=== PATIENT | female | born 1955 | race Caucasian/White ===

== ENCOUNTER 2017-02-02 08:14 | Day surgery (SDC) | payer OTHER ==
[~2017-02-02] VITALS: Ht 157.5 cm; Wt 69.7 kg
[~2017-02-02 08:14] MED LIST: PROZ20CA11 PO; ST JTAB PO
[2017-02-02 09:00] VITALS: BP 114/70; PULSE 59; RESP 16; TEMP 98.2; O2SAT 96
[2017-02-02] MEDS ORDERED: NS 1000P @30 MLS/HR (KVO) IV SCH ×2 (09:00→11:30)
[2017-02-02] MEDS ORDERED: PROZ20CA11 PO (09:12)
[2017-02-02] MEDS ORDERED: ASPI81CH CHEW (09:12)
[2017-02-02 09:21] LABS: AUTOMATED NEUTROPHIL # 2.8 TH/MM3 (1.8-7.7); BASOPHIL % 0.7 % (0.0-2.0); EOSINOPHIL # 0.2 TH/MM3 (0-0.4); EOSINOPHIL % 3.4 % (0.0-4.0); HEMATOCRIT 43.5 % (35.0-46.0); HEMO FLAGS DIFF FINAL; LYMPH % 34.7 % (9.0-44.0); LYMPHOCYTE # 1.8 TH/MM3 (1.0-4.8); MEAN CELL VOLUME 91.9 FL (80.0-100.0); MEAN CORPUSCULAR HEMOGLOBIN 31.3 PG (27.0-34.0); MONO % 7.7 % (0.0-8.0); NEUT % 53.5 % (16.0-70.0); PLATELET COUNT 221 TH/MM3 (150-450); RED BLOOD COUNT 4.73 MIL/MM3 (4.00-5.30); RED CELL DISTRIBUTION WIDTH 12.9 % (11.6-17.2); WHITE BLOOD COUNT 5.2 TH/MM3 (4.0-11.0)
[2017-02-02 09:30] LABS: INTERNATIONAL NORMALIZED RATIO 0.9 RATIO; PROTHROMBIN TIME - PATIENT 10.3 SEC (9.8-11.6)
[2017-02-02 09:40] LABS: BICARBONATE 28.4 MEQ/L (21.0-32.0); POTASSIUM 3.9 MEQ/L (3.5-5.1)
[2017-02-02] MEDS ORDERED: MIDAZOLAM HCL 2 MG/2 ML VIAL ONE (09:50)
[2017-02-02] MEDS ORDERED: HEPARIN-NS/PF INJ 500 ML ONE (09:50)
--- NOTE | 2017-02-02 10:41 | CATHPROC ---
[employer] HIS Report Study Information Study Number Admission Scheduled Start Study Start [id number] Feb 02 2017 8:14AM 02/02/2017 Feb 02 2017 9:40AM [place] Service Cardiac Catheterization Admit Source Facility Department Other [facility] - Technology Resource Teacher Physician and Clinical Staff Initial Milana Hadley Sound System Installer Trudi Kam,MAHNAZ Recorder Leeroy Wells RCIS(BS) Lyn Cano RCIS TECH2 Procedures Performed Procedure Location (Site) Vessel Name Coronary Angiograms LCA Left Coronary L Heart Cath Equipment Time Maintenance Machinist Description Size Mfg Part Number Used/Scraped PERCLOSE, PRO GLIDE CLOSER 10:19 [employer] FR 6 [id number] *[id number] Used DEVICE TRANSDUCER, TRUWAVE [id number] 10:01 SINGH KAM * Used W/STOCKCOCK *[id number] [id number] *[id number] [id number] *[id number] [id number] *[id number] 10:01 [employer] PACK, CCL CUSTOM * Used *[id number] 10:01 EntraTympanic PACER PEN, SKIN DUAL W/ RULER * Used *[id number] 10:01 [email or web address] SHEATH, FR6.5 PRELUDE 11CM FR 6.5 038ACT Used *[id number] 10:01 [email or web address] WIRE, 3MMJ .035 180CM 180CM Used *[id number] 10:01 NAMIC MANIFOLD, 4 PORT * Used *[id number] 10:01 [employer] OMNIPAQUE, 350 MG, 150ML 150ML [id number] Used [id number] 10:01 [facility],WARM AIR CCL * Used *[id number] Equipment Model, Serial, Lot Number and Expiration Data Description Model Number Serial Number Lot Number Expiration Date PERCLOSE, PRO GLIDE CLOSER [id number] 10-18-2018 DEVICE History: Current Medications Medication Dosage/Unit Route Frequency Last Date/Time Taken ASA History: Allergies Allergy Reaction Levaquin History: Risk Factors Family History of Hypertension Dyslipidemia Previous DC Previous Heart Failure Premature CAD Yes Yes Yes Yes No Prior Valve Prior PCI Prior CABG Surgery No No No Cerebrovascular Peripheral Artery Chronic Lung On Dialysis Diabetes Disease Disease Disease No No No Yes No History: Symptoms/Diagnosis Selection Items Chest pain History: Stress Tests Stress or Imaging Studies Performed Yes Standard Exercise Stress Test No Stress Echo No Stress Test SPECT Stress Test SPECT Result Stress Test SPECT Ischemia Risk/Extent Yes Positive Intermediate Stress Test CMR No Cardiac CTA Coronary Calcium Score No No History: Other Current Smoker No Labs Hgb (g/dl) Hct (%) WBC (l/cumm) Platelets (thousands) 11.60-17.00 35.00-51.00 4.00-11.00 150.00-450.00 14.8 43.5 5.2 221 Glucose (mg/dl) BUN (mg/dl) Creatinine (mg/dl) BUN:Creatinine (1:x) 74.00-106.00 7.00-18.00 0.50-1.30 10.00-20.00 90 16 0.6 26.7 Na (meq/l) K (meq/l) 136.00-145.00 3.50-5.10 139 3.9 INR (PTT:PT) 0.90-1.10 0.9 CPK-MB (ng/ML) 0.50-3.60 Not Drawn Medication Medication Total Dose (Bolus/Oral) Medication Total Dosage/Unit 1% XYLOCAINE 20 mL VERSED 1 mg Medications (Bolus/Oral) Medication Time Given Dosage/Unit Administered By Reason VERSED 02/02/2017 10:04:00 AM 1 mg Trudi Kam 1 mg VERSED given in lab by Trudi Kam, RN in Left Antecubital via Peripheral IV. Ordered by Milana Lyons. 1% XYLOCAINE 02/02/2017 10:05:53 AM 20 mL Milana Vickers 20 mL 1% XYLOCAINE given in lab by Milana Vickers in Right Groin via Subcutaneous. Ordered by Milana Vickers. Medication (Drip) Medication Time Given Dosage/Unit Concentration/Unit Diluent (ml) Solution IV Solutions 02/02/2017 9:44:34 AM 0 mL (IV) 500 NaCl .9 Patient arrived on IV Solutions in Left Antecubital via Peripheral IV. Pump/Drip Flow = 20 ml/hr usin g NaCl .9. Ordered by Milana Vickers. Initial Case Assessment Cardiovascular HR Rhythm NIBP Chest Pain 55 SINUS TAMIKO 100/76 0 Edema Present Skin color Skin None Normal Warm Dry Circulatory - Right Pulses Dorsalis Pedis Femoral 2 2 Scale (0,1,2,3,4,d) Circulatory - Left Pulses Dorsalis Pedis Femoral 2 2 Scale (0,1,2,3,4,d) Circulatory - Lower Extremities Color Lower Right Color Lower Left Normal Normal Neurological State Oriented to time-place- Alert Moves all extremities person Respiration - General Respiration Rate SpO2 (%) (B/min) 10 98 Final Case Assessment Cardiovascular HR Rhythm NIBP Chest Pain 55 SINUS TAMIKO 120/76 0 Edema Present Skin color Skin None Normal Warm Dry Circulatory - Right Pulses Dorsalis Pedis Femoral 2 2 Scale (0,1,2,3,4,d) Circulatory - Left Pulses Dorsalis Pedis Femoral 2 2 Scale (0,1,2,3,4,d) Circulatory - Lower Extremities Color Lower Right Color Lower Left Normal Normal Neurological State Oriented to time-place- Alert Moves all extremities person Respiration - General Respiration Rate SpO2 (%) (B/min) 10 98 Chronological Log Time Study Chronological Log 9:44:15 Patient arrived via Bed. 9:44:17 Patient Name, D.O.B, / Armband Verified By R.N. 9:44:17 Consent signed by the physician and the patient and verified by the Technology Resource Teacher staff. 9:44:19 Pre-op and post- op instructions given; patient acknowledges understanding of instructions. 9:44:22 Verbal Stimulation=2 Physical Stimulation=2 Airway=2 Respiration=2 TOTAL=8. (0=absent, 1=li mited, 2=present) 9:44:26 Patient has been NPO for Less than 6Hrs. 9:44:27 Skin Breakdown- 9:44:28 Patient Warmer Placed on the Table. 9:44:32 A # 20 IV was noted in the Antecubital (left). Grade = 0 Patient arrived on IV Solutions in Left Antecubital via Peripheral IV. Pump/Drip Flow = 20 ml/h r using NaCl .9. Ordered 9:44:34 by Milana Vickers. 9:44:35 History and physical on the chart or being dictated. Vitals capture started with the following parameters, Patient=Adult, Interval=5 min, Initial Pr djedui=705 mmHg, 9:48:54 Deflation Rate=5 mmHg, Cuff placed on Right Arm Assessment: Initial Case, HR=55 BPM, Rhythm=SINUS TAMIKO, XAZS=419/76 mmhg, Chest Pain=0, Edema= None, Color=Normal, Skin = Warm, Dry Right Pulses: Michael Ped=2, Femoral=2 Left Pulses: Michael Ped=2, Femoral=2 9:48:58 Lower Right Extremities: Color=Normal Lower Left Extremities: Color=Normal Neurological: State=Alert, Ox3, CERVANTES Respiration: Resp=10 B/min, SpO2=98 % 9:48:59 Right groin prepped with 2% chlorhexidine, and with a 3 min. waiting time. 9:49:38 HR=59 bpm, BWDB=170/72 mmhg, SpO2=99.0 %, Resp=0 B/min, Pain=0, Juany=10, Alonso=2 9:54:27 HR=57 bpm, SGAF=146/70 mmhg, SpO2=98.0 %, Resp=4 B/min, Pain=0, Juany=10, Alonso=2 9:59:24 HR=58 bpm, TJEJ=182/76 mmhg, SpO2=97.0 %, Resp=19 B/min, Pain=0, Juany=10, Alonso=2 10:02:17 Right groin prepped with 2% chlorhexidine, and with a 3 min. waiting time. 10:02:18 MD arrived. 10:04:00 1 mg VERSED given in lab by Trudi Kam RN in Left Antecubital via Peripheral IV. Or dered by Milana Vickers. 10:04:21 HR=56 bpm, TVDG=206/71 mmhg, SpO2=98.0 %, Resp=9 B/min, Pain=0, Juany=10, Alonso=2 10:05:05 Reference ECG taken Time Out. Correct patient, correct procedure,correct physician, power injector loaded with cont rast with surgical team 10:05:23 present. Time Out Concurred by , individual staff in procedure 10:05:51 Case Start 10:05:53 20 mL 1% XYLOCAINE given in lab by Milana Vickers in Right Groin via Subcutaneous. Ordered b y Milana Vickers. 10:06:50 Pressure channel 1 zeroed. 10:07:14 Access site was Right Femoral Artery. 10:07:18 A SHEATH, FR6.5 PRELUDE 11CM FR 6.5 was advanced into the Fem Art (right) using the Percuta neous technique. A JR 4.0 INFINITI CATHETER FR 6 was advanced over a wire. OMNIPAQUE, 350 MG, 150ML 150ML was us ed for 10:07:30 injections. 10:09:57 HR=58 bpm, CIZK=640/71 mmhg, SpO2=93.0 %, Resp=14 B/min, Pain=0, Juany=10, Alonso=2 Recorded Pressure: Ao, HR=60, Condition=Condition 1 10:10:18 (Aorta) Ao 115/67/86 10:10:43 The LCA was injected and visualized at various angles. OMNIPAQUE, 350 MG, 150ML 150ML used . 10:11:26 Catheter was removed A JL 4.0 INFINITI CATHETER FR 6 was advanced over a wire. OMNIPAQUE, 350 MG, 150ML 150ML was us ed for 10:11:27 injections. 10:12:46 The LCA was injected and visualized at various angles. OMNIPAQUE, 350 MG, 150ML 150ML used . 10:14:03 Catheter was removed A PIGTAIL STR INFINITI CATHETER FR 6 was advanced over a wire. OMNIPAQUE, 350 MG, 150ML 150ML w as used for 10:14:15 injections. 10:14:27 HR=55 bpm, ZLTC=127/66 mmhg, SpO2=96.0 %, Resp=15 B/min, Pain=0, Juany=10, Alonso=2 Recorded Pressure: LV, HR=59, Condition=Condition 1 10:15:34 (Left Ventricle) LV 111/-1/5 Recorded Pressure: LV, Ao, HR=57, Condition=Condition 1 10:15:49 (Left Ventricle) LV 122/-6/6, (Aorta) Ao 118/68/89 10:16:32 Catheter was removed 10:16:47 An injection in the Fem Art (right) was made through the SHEATH, FR6.5 PRELUDE 11CM FR 6.5. Assessment: Final Case, HR=55 BPM, Rhythm=SINUS TAMIKO, JIIF=419/76 mmhg, Chest Pain=0, Edema=N one, Color=Normal, Skin = Warm, Dry Right Pulses: Michael Ped=2, Femoral=2 Left Pulses: Michael Ped=2, Femoral=2 10:17:37 Lower Right Extremities: Color=Normal Lower Left Extremities: Color=Normal Neurological: State=Alert, Ox3, CERVANTES Respiration: Resp=10 B/min, SpO2=98 % 10:19:00 PERCLOSE, PRO GLIDE CLOSER DEVICE FR 6 placement in the Fem Art (right) 10:19:28 HR=56 bpm, NKJG=915/69 mmhg, SpO2=97.0 %, Resp=14 B/min, Pain=0, Juany=10, Alonso=2 10:20:25 Case End 10:21:06 Sterile dressing applied to site 10:21:07 No case complications noted. 10:21:08 Cine recording checked. 10:22:45 Contrast Scanned 10:22:49 A Left Heart Cath was performed. 10:22:50 Patient moved to stretcher 10:24:25 HR=58 bpm, QVNK=113/72 mmhg, SpO2=97.0 %, Resp=11 B/min, Pain=0, Juany=10, Alonso=2 10:29:30 HR=57 bpm, VQZZ=554/66 mmhg, SpO2=97.0 %, Resp=12 B/min, Pain=0, Juany=10, Alonso=2 10:34:33 HR=57 bpm, VBUQ=172/60 mmhg, SpO2=97.0 %, Resp=19 B/min, Pain=0, Juany=10, Alonso=2 End Study - Contrast Media Used In Study Contrast Total Opened (mL) Total Used (mL) Total Wasted (mL) Omnipaque 50 50 0 End Study - Maximum Contrast Load Max Contrast Load (mL) 580.7 End Study - Radiation Exposure Fluoro Time (minutes) 2.5 End Study - Patient Disposition Complications Transferred To Telemetry Bed
[2017-02-02] MEDS ORDERED: SODIUM CHLOR 0.9% 1000 ML INJ 400 ML IV ONE (11:00)
--- NOTE | 2017-02-02 13:47 | EKG ---
Date Performed: 02/02/2017 Time Performed: 09:22:48 PTAGE: 61 years EKG: Sinus bradycardia. rSr'(V1) - probable normal variant Septal T wave changes are nonspecific Borderline ECG Compared to prior tracing no significant change PREVIOUS TRACING : 10/07/2015 11.43 DOCTOR: Glenn Carlos Interpretating Date/Time 02/02/2017 13:46:39
[2017-02-02] MEDS ORDERED: IOHEXOL 350 MG/ML 50 ML BTL (for Cath Lab) OTHER ONE (15:31)
--- NOTE | 2017-02-03 10:43 | MA ---
cc: CINDA GREGORIO MD DATE: 02/02/17 Patient is 61 with persistent chest pain positive stress test for ischemia. PROCEDURE Left heart catheterization, angiogram, left ventriculogram, right femoral angiogram, Perclose closure of puncture wound after getting the sheath out. After obtaining informed consent, patient in the fasting state was brought to labor and delivery nurse. The right groin area was sterilized and draped with sterile drapes. 1% Xylocaine was used to locally anesthetize the area. A 6-Japanese sheath was used to access the right femoral artery. JL4 and JR4 used to intubate the right coronary artery and pigtail to perform a left ventriculogram and pressure measurements. At the end of the procedure, Perclose closure of puncture wounds done successfully. A right femoral angiogram was performed via the sheath. She tolerated the procedure well with no complications and was sent back to her room in stable condition. RESULTS CORONARY ANGIOGRAM The left main coronary artery is a small to medium sized vessel bifurcating to LAD and left circumflex artery. The left main has no significant disease. Left anterior descending artery and its branches are somewhat tortuous with no significant disease. Left circumflex artery had no significant disease. The right coronary artery and its branches have no significant disease. It is a dominant, small to medium size vessel. LEFT VENTRICULOGRAM Ejection fraction estimated to be 55%. No pressure gradient across the aortic valve. Left ventricular end-diastolic pressure of 12. Aortic pressure 105/70. Medical management to continue and reassurance. Sent back to her room in stable condition. POSTOPERATIVE DIAGNOSIS Persistent chest pain with no significant coronary artery disease and preserved systolic performance of the left ventricle. MD CHEN Hogan/BETY /10:23 AM /11:37 AM
== END 2017-02-02 15:05 | disposition home or self-care (01) ==
LOC: HDOC 08:14 → HDIC 08:15 → HDOC 15:05
PROVIDERS: ATTEND Internal Medicine Cardiovascular Disease
DX: R07.9 Chest pain, unspecified (principal); I10 Essential (primary) hypertension; E78.5 Hyperlipidemia, unspecified; Z79.82 Long term (current) use of aspirin; Z79.899 Other long term (current) drug therapy
CPT/HCPCS: 80048; 85025; 85610; 85730; 93005; 93458; C1760; C1769; C1893; G0269; J1644; J2250; J3010; J7030; Q9967